=== PATIENT | male | born 1995 | race Caucasian/White ===

== ENCOUNTER 2024-08-27 22:29 | Inpatient (IN) ==
--- NOTE | 2024-08-27 23:36 | Emergency Department Note ---
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 Blood work was obtained. Patient had nausea and vomiting. He was given Zofran. A banana bag was ordered and administered after discussion with pharmacist. Patient has not been eating well and has had significant alcohol intake. Patient was also given IV Ativan. On reassessment he was doing much better. CBC and chemistry panel are unremarkable. Patient had a marked elevation of his blood alcohol level. He is at high risk for serious withdrawal and delirium tremens. Patient and I discussed hospital admission. Patient is agreeable and wants help with his alcohol problem.Consultation was made with Dr. Dominik Rider of the [facility] service. Patient was evaluated in the ER for further management. Care/management discussed with: none Level of care consideration(s): After review of the information above and other included data, I feel the patient requires escalation of care to admission Triage Nursing notes: reviewed and agree them. Vital Signs: reviewed and remarkable for tachycardia Additional History obtained from: none Chronic Medical/Social Conditions affecting care: Alcohol abuse Prior/ Outside/ External records reviewed: none Differential Diagnosis: Alcohol intoxication, toxicologic, infection, hypoglycemia, electrolyte abnormalities, cardiac sources, intracerebral event, neurologic, trauma, as well as other pathologies. Diagnostics, independently interpreted by me: ECG: Twelve-lead ECG reveals a normal sinus rhythm at [address] elevation or depression. No PACs or PVCs. Cardiac Monitoring: Cardiac monitoring ordered by me: The patient was placed on continuous cardiac monitoring and observed. It revealed a sinus tachycardia at 116 beats per minute without ectopy or evidence of dysrhythmia. Medical decision rules: none Imaging studies: Deferred HPI: 28 year old Male arrives for evaluation of intoxication. Patient states that he consumes alcohol heavily. He has been drinking like this for over a month. He was feeling somewhat down about the of his mother as her birthday was just a few days ago. Patient states he has had some vomiting. He feels very shaky. He drank about 5 cocktails today. Patient does have a history of withdrawal and heavy alcohol use. He does note a history of withdrawal seizures as well. He is seeking care due to the concerns for severe withdrawal. Patient also notes a history of hallucinations. Denies any current hallucinations. Notes he feels somewhat depressed but denies any suicidal or homicidal ideation. Pt denies LOC, headache, fevers, chills, diaphoresis, visual changes, neck pain, chest pain, breathing difficulties, trauma, abdominal pain, back pain, melena, hematochezia, urinary symptoms, numbness, weakness, lymphadenopathy, rash, or other complaints. PAST MEDICAL HISTORY: See Below, alcohol abuse, delirium tremens PAST SURGICAL HISTORY: See Below, SOCIAL HISTORY: See Below, drinks daily HOME MEDICATIONS: See Below ALLERGIES: See Below VITALS: See Below PHYSICAL EXAMINATION: GENERAL: Awake, alert, intoxicated-appearing, in no distress HENT: Normocephalic, atraumatic. Oropharynx unremarkable. EYES: Normal conjunctiva. Sclera non-icteric. NECK: Inspection normal. Non-tender. Supple. No nuchal rigidity. FROM. No masses. RESPIRATORY: Clear to auscultation. No wheezes. No rales. Normal respiratory effort. CARDIAC: Tachycardic rate. Normal rhythm. No murmurs. No rubs. Extremities warm and well perfused. Pulses equal. No JVD. GI: Soft, non-distended. No tenderness to palpation. No rebound or guarding. No masses. RECTAL: Deferred. MUSCULOSKELETAL: Atraumatic. Chest examination reveals no tenderness. The back is symmetrical on inspection without obvious abnormality. There is no CVA tenderness to palpation. No joint edema. LOWER EXTREMITIES: Calves are equal size bilaterally and non-tender. No edema. No discoloration. NEURO: Normal sensorium. No sensory or motor deficits noted. SKIN: No rash or jaundice noted. 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 and No Current Living Situation: Alone Feels Safe at Home: Yes Allergies Allergies Allergy/AdvReac Type Severity Reaction Status Date / Time No Known Allergies Allergy Verified 08/27/24 23:33 Results & Data (ED) Vital Signs Vital Signs - 24 hr 08/27/24 22:49 08/27/24 22:49 08/27/24 22:49 Temperature 36.6 C Temperature Source Oral Pulse Rate 101 H Pulse Rate [Apical] 101 H Pulse Rate from SpO2 Sensor Respiratory Rate 18 18 Respiratory Effort / Characteristics Non-Labored Spontaneous Non-Labored Spontaneous Respiratory Depth Normal Normal Blood Pressure 122/83 Blood Pressure [Right Arm] 122/83 Blood Pressure Mean 96 Blood Pressure Mean [Right Arm] 96 Pulse Oximetry 96 96 Oxygen Delivery Method Room Air Room Air Room Air Sepsis Recent Fever Within 48 Hours No Sepsis New/Unexplained Change in Mental Status No Sepsis Action Taken by Nursing No Action Required 08/27/24 23:00 08/28/24 00:21 08/28/24 00:39 Temperature Temperature Source Pulse Rate 95 H 88 82 Pulse Rate [Apical] Pulse Rate from SpO2 Sensor 92 H 81 Respiratory Rate 15 17 Respiratory Effort / Characteristics Respiratory Depth Blood Pressure 108/73 109/77 Blood Pressure [Right Arm] Blood Pressure Mean 84 87 Blood Pressure Mean [Right Arm] Pulse Oximetry 96 96 Oxygen Delivery Method Room Air Room Air Sepsis Recent Fever Within 48 Hours Sepsis New/Unexplained Change in Mental Status Sepsis Action Taken by Nursing Laboratory Data 08/27/24 22:45 08/27/24 22:45 Lab Results 08/27/24 Range/Units 22:45 WBC 8.39 (4.8-10.8) K/ul RBC 5.70 (4.70-6.10) M/uL Hgb 17.8 (14.0-18.0) g/dl Hct 50.1 (42.0-52.0) % MCV 87.9 (80.0-100.0) fL MCH 31.2 (25.0-34.0) pg MCHC 35.5 (32.0-36.0) g/dL RDW Std Deviation 39.1 (36.4-46.3) fL RDW Coeff of Chuck 12.3 (11.5-14.5) % Plt Count 141 (130-400) K/uL MPV 8.5 L (9.4-12.4) fL Immature Gran % (Auto) 0.4 % Neut % (Auto) 51.6 % Lymph % (Auto) 38.4 % [place] % (Auto) 7.5 % Eos % (Auto) 1.1 % Baso % (Auto) 1.0 % Neut # (Auto) 4.34 (1.40-6.50) K/uL Lymph # (Auto) 3.22 (1.20-3.40) K/uL [place] # (Auto) 0.63 H (0.11-0.59) K/uL Eos # (Auto) 0.09 (0.00-0.50) K/uL Baso # (Auto) 0.08 (0.00-0.20) K/uL Immature Gran # (Auto) 0.03 (0.01-0.20) K/uL Sodium 141 (136-145) mmol/L Potassium 3.5 (3.5-5.1) mmol/L Chloride 104 (98-107) mmol/L Carbon Dioxide 27 (21-32) mmol/L Anion Gap 10 (3-11) BUN 7 (6-23) mg/dl Creatinine 0.73 (0.6-1.4) mg/dl Est Cr Clr Drug Dosing 157.6 ml/min eGFR 125.52 BUN/Creatinine Ratio 9.6 L (10-20) Glucose 129 H (70-99(Fasting)) mg/dl Calcium 8.7 (8.6-10.3) mg/dl Magnesium 2.1 (1.7-2.4) mg/dl Total Bilirubin 0.9 (0.2-1.0) mg/dl Direct Bilirubin 0.2 (0-0.2) mg/dl AST 56 H (13-39) U/L ALT 43 (7-52) U/L Alkaline Phosphatase 94 (34-104) U/L Total Protein 7.8 (6.0-8.3) gm/dl Albumin 4.4 (3.4-5.0) gm/dl Salicylates < 3.0 L (3.0-30) mg/dl Acetaminophen < 3 L (10-30) ug/ml Ethyl Alcohol mg/dL 354.2 H (<10.0) mg/dl Administered Medications Discontinued Medications Gabapentin (Gabapentin 600 Mg Tab) 1,200 mg PO NOW ONE Stop: 08/28/24 01:43 Last Admin: 08/28/24 01:56 Dose: 1,200 mg Documented By: LUIS ANGEL Multivitamins 10 ml/ Thiamine HCl 100 mg/ Folic Acid 1 mg/Sodium Chloride 1,011.2 mls @ 999 mls/hr IV .Q1H1M ONE Stop: 08/28/24 00:45 Last Infusion: 08/28/24 01:17 Dose: Infused Documented By: LUIS ANGEL Admin: 08/28/24 00:16 Dose: 999 mls/hr Documented By: LUIS ANGEL Lorazepam (Lorazepam 2 Mg/1 Ml Vial) 1 mg IV NOW STA Stop: 08/27/24 23:33 Last Admin: 08/27/24 23:49 Dose: 1 mg Documented By: LUIS ANGEL Ondansetron HCl (Ondansetron Inj 2 Mg/Ml 2 Ml Vial) 4 mg IV NOW STA Stop: 08/27/24 23:31 Last Admin: 08/27/24 23:49 Dose: 4 mg Documented By: LUIS ANGEL Discharge Plan Visit Data Chief Complaint: Alcohol Intoxication Stated Complaint: ALCOHOL INTOX/ SI ED Provider: Tadeo Garcia Discharge Problem: Alcoholic intoxication, Alcohol withdrawal syndrome, Vomiting Patient Disposition: Admitted As Inpatient Discharge Instructions Interventions: ED Discharge Assessment Last Done: 08/28/24 01:42
[2024-08-27 23:37] LABS: Basophils # (auto) 0.08 K/uL (0.00-0.20); Eosinophils # (auto) 0.09 K/uL (0.00-0.50); Eosinophils % (auto) 1.1 %; Hematocrit (blood only) 50.1 % (42.0-52.0); Hemoglobin 17.8 g/dl (14.0-18.0); Immature Granulocytes # (auto) 0.03 K/uL (0.01-0.20); Immature Granulocytes % (auto) 0.4 %; Lymphocytes # (auto) 3.22 K/uL (1.20-3.40); Lymphocytes % (auto) 38.4 %; Mean Corpuscular Hemoglobin 31.2 pg (25.0-34.0); Mean Corpuscular Hgb Conc 35.5 g/dL (32.0-36.0); Mean Corpuscular Volume 87.9 fL (80.0-100.0); Mean Platelet Volume 8.5 fL (9.4-12.4); Monocytes # (auto) 0.63 K/uL (0.11-0.59); Monocytes % (auto) 7.5 %; Neutrophils # (auto) 4.34 K/uL (1.40-6.50); Neutrophils % (auto) 51.6 %; Platelet Count 141 K/uL (130-400); RDW Coefficient of Variation 12.3 % (11.5-14.5); RDW Standard Deviation 39.1 fL (36.4-46.3); White Blood Count 8.39 K/ul (4.8-10.8)
[2024-08-27 23:38] LABS: BUN Creatinine Ratio 9.6 (10-20); Calcium 8.7 mg/dl (8.6-10.3); Creatinine Clr Calc Pharmacy 157.6 ml/min; Potassium 3.5 mmol/L (3.5-5.1)
[2024-08-27] MEDS: LORazepam 2 MG/1 ML VIAL IV STA (23:49)
[2024-08-27] MEDS: ONDANSETRON INJ 2 MG/ML 2 ML VIAL IV STA (23:49)
[2024-08-27 23:51] LABS: Albumin Level 4.4 gm/dl (3.4-5.0); Bilirubin Direct 0.2 mg/dl (0-0.2); Bilirubin,Total 0.9 mg/dl (0.2-1.0); Magnesium 2.1 mg/dl (1.7-2.4); Total Protein 7.8 gm/dl (6.0-8.3)
[2024-08-28 00:12] LABS: Acetaminophen < 3 ug/ml (10-30); Salicylate < 3.0 mg/dl (3.0-30)
[2024-08-28] MEDS: MULTI-VITAMIN INFUSION 10 ML, THIAMINE HCL 100 MG, FOLIC ACID 1 MG in SODIUM CHLORIDE 0... IV ONE (00:16)
[2024-08-28] MEDS ORDERED: GABAPENTIN 1200MG ALCOHOL WITHDRAWAL LOAD PO STA (01:42)
[2024-08-28] MEDS ORDERED: Ativan IV Alcohol Withdrawal--Active Protocol IV PRN (01:42)
[2024-08-28] MEDS ORDERED: ONDANSETRON INJ 2 MG/ML 2 ML VIAL IV PRN (01:42)
[2024-08-28] MEDS ORDERED: LORazepam 2 MG/1 ML VIAL IV PRN (01:42)
[2024-08-28] MEDS: GABAPENTIN 600 MG TAB PO ONE (01:56)
[2024-08-28 02:30] LABS: Appearance Urine Cloudy (Clear); Bacteria Urine Automated None Seen (None Seen); Bilirubin Urine 1+ (Negative); Blood Urine Negative (Negative); Cast Urine Automated 0-2 /lpf (0-2); Color Urine Dark Yellow; Epithelial Cell Urine Auto 0-2 /hpf (0-2); Glucose Urine UA Negative (Negative); Ketones Urine Trace (Negative); Leukocyte Esterase Urine 2+ (Negative); Mucus Urine Present (None Prsent); Nitrite Urine Negative (Negative); Protein Urine 1+ (Negative); RBC Urine Automated 0-2 /hpf (0-2); Specific Gravity Urine 1.032 (1.000-1.030); Urobilinogen Urine Negative (Negative)
[2024-08-28 02:54] LABS: Amphetamines+Metham, Urine Neg (Neg); Barbiturates, Urine Neg (Neg); Benzodiazepine, Urine Neg (Neg); Cocaine, Urine Neg (Neg); Fentanyl, Urine Neg (Neg); MDMA (Ecstacy), Urine Neg (Neg); Marijuana, Urine Neg (Neg); Methadone, Urine Neg (Neg); Opiate, Urine Neg (Neg); Phencyclidine, Urine Neg (Neg)
--- NOTE | 2024-08-28 05:40 | History & Physical Report ---
Date of Service August 28, 2024 Assessment & Plan (1) History of seizure due to alcohol withdrawal: (2) Vomiting: (3) Alcohol withdrawal syndrome: (4) Alcoholic intoxication: (5) Tobacco abuse: Plan Alcohol intoxication/alcohol withdrawal symptoms/history of seizure due to alcohol withdrawal- Admit to monitored bed Status post banana bag, lorazepam 1 mg IV and Zofran 4 mg IV from the ED Alcohol level 354.2 on admission Start gabapentin protocol due to seizure withdrawal history AWSS protocol with IV Ativan Thiamine 100 mg p.o. every morning Folic acid 1 mg p.o. every morning Tobacco use disorder- Daily tobacco use Cessation counseling NicoDerm patch if desires Admission and Anticipated Discharge Date Admission Date: August 28, 2024 History of Present Illness Chief Complaint: The patient presents to the emergency department due to concerns regarding shaking and tremors when he tries to decrease his alcohol intake, which he has begun more significantly again over the past month. Primary Care Provider: NO PCP The patient is a 28-year-old male with a past medical history including tobacco abuse, and alcohol dependency, with multiple admissions for seizures associated with alcohol withdrawal. He presents to the emergency department with his most recent intake over the past month, and concerns regarding shakes and tremors as he tries to cut back. He also reports multiple episodes of nausea and vomiting. He reports upon questioning, that he would be interested in consideration for inpatient rehab once he goes through this inpatient episode Allergies Allergy/AdvReac Type Severity Reaction Status Date / Time No Known Allergies Allergy Verified 08/27/24 23:33 Home Medications Medication Instructions Recorded Confirmed Type No Known Home Medications 08/28/24 08/28/24 History Past Med/Surg History Problem List (Updated 08/28/24 @ 05:38 by Dominik Rider MD) Tobacco abuse History of seizure due to alcohol withdrawal Vomiting (Acute) Alcohol withdrawal syndrome (Acute) Alcoholic intoxication (Acute) Social History Smoking Status: Current every day smoker Tobacco Type: Cigarettes Hx Alcohol Use: Yes Alcohol type: hard liquor Hx Substance Use: Yes Preferred Language: Sami 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 Current Living Situation: Alone Feels Safe at Home: Yes Review of Systems Review of Systems: The patient denies chest pain, palpitations, shortness of breath, dyspnea on exertion, cough, lower extremity swelling, sore throat, fevers, chills, sweats, weight change, fatigue, diarrhea , constipation, abdominal pain, pelvic pain, blood in urine or stool, dysuria, urinary frequency or urgency, memory loss, loss of consciousness, rash, abnormal bruising or bleeding, imbalance, focal or generalized weakness, numbness or tingling in arms or legs, generalized arthralgias or myalgias, back or neck pain, or night sweats. The review of systems is otherwise negative other than for that already noted above, and at least 10 systems have been reviewed. Physical Exam Physical Exam: The patient is awake, alert and oriented 3, well developed and well nourished, normocephalic and atraumatic, lying in bed and in no acute distress. HEENT--PERRL, EOMI, mucous membranes and oropharynx mildly dry. Neck--supple. No JVD. No bruits. Thyroid normal, trachea midline, no adenopathy. Heart--normal S1 and S2. No murmurs, rubs or gallops. Lungs--clear bilaterally, no respiratory distress, no accessory muscle use. Abdomen--normal bowel sounds and soft. Nontender. Nondistended, no hernias or masses, no organomegaly. Extremities--no cyanosis or clubbing. No edema. There are good distal pulses b/l. Dermatologic--normal skin turgor, normal color, no abnormal lymph nodes, no rash. Neurologic--cranial nerves II through XII grossly intact. Rheumatologic--normal range of motion. Psychiatric--normal affect. Results & Data Results & Data Vital Signs (Past 12 Hours) Vital Signs Temp Pulse Pulse Resp BP BP Pulse Ox 08/28/24 03:33 08/28/24 03:19 36.6 C 94 H 18 100/74 97 08/28/24 02:09 83 17 125/67 92 08/28/24 00:39 82 17 109/77 96 08/28/24 00:21 88 15 108/73 96 08/27/24 23:00 95 H 08/27/24 22:49 101 H 18 122/83 96 08/27/24 22:49 08/27/24 22:49 36.6 C 101 H 18 122/83 96 Pulse Ox O2 Del Method O2 Del Method 08/28/24 03:33 97 Room Air 08/28/24 03:19 Room Air 08/28/24 02:09 Room Air 08/28/24 00:39 Room Air 08/28/24 00:21 Room Air 08/27/24 23:00 08/27/24 22:49 Room Air 08/27/24 22:49 Room Air 08/27/24 22:49 Room Air Laboratory Results Laboratory Results WBC 8.39 K/ul (4.8-10.8) 08/27/24 22:45 RBC 5.70 M/uL (4.70-6.10) 08/27/24 22:45 Hgb 17.8 g/dl (14.0-18.0) 08/27/24 22:45 Hct 50.1 % (42.0-52.0) 08/27/24 22:45 MCV 87.9 fL (80.0-100.0) 08/27/24 22:45 MCH 31.2 pg (25.0-34.0) 08/27/24 22:45 MCHC 35.5 g/dL (32.0-36.0) 08/27/24 22:45 RDW Std Deviation 39.1 fL (36.4-46.3) 08/27/24 22:45 RDW Coeff of Chuck 12.3 % (11.5-14.5) 08/27/24 22:45 Plt Count 141 K/uL (130-400) 08/27/24 22:45 MPV 8.5 fL (9.4-12.4) L 08/27/24 22:45 Immature Gran % (Auto) 0.4 % 08/27/24 22:45 Neut % (Auto) 51.6 % 08/27/24 22:45 Lymph % (Auto) 38.4 % 08/27/24 22:45 [place] % (Auto) 7.5 % 08/27/24 22:45 Eos % (Auto) 1.1 % 08/27/24 22:45 Baso % (Auto) 1.0 % 08/27/24 22:45 Neut # (Auto) 4.34 K/uL (1.40-6.50) 08/27/24 22:45 Lymph # (Auto) 3.22 K/uL (1.20-3.40) 08/27/24 22:45 [place] # (Auto) 0.63 K/uL (0.11-0.59) H 08/27/24 22:45 Eos # (Auto) 0.09 K/uL (0.00-0.50) 08/27/24 22:45 Baso # (Auto) 0.08 K/uL (0.00-0.20) 08/27/24 22:45 Immature Gran # (Auto) 0.03 K/uL (0.01-0.20) 08/27/24 22:45 Sodium 141 mmol/L (136-145) 08/27/24 22:45 Potassium 3.5 mmol/L (3.5-5.1) 08/27/24 22:45 Chloride 104 mmol/L (98-107) 08/27/24 22:45 Carbon Dioxide 27 mmol/L (21-32) 08/27/24 22:45 Anion Gap 10 (3-11) 08/27/24 22:45 BUN 7 mg/dl (6-23) 08/27/24 22:45 Creatinine 0.73 mg/dl (0.6-1.4) 08/27/24 22:45 Est Cr Clr Drug Dosing 157.6 ml/min 08/27/24 22:45 eGFR 125.52 08/27/24 22:45 BUN/Creatinine Ratio 9.6 (10-20) L 08/27/24 22:45 Glucose 129 mg/dl (70-99(Fasting)) H 08/27/24 22:45 Calcium 8.7 mg/dl (8.6-10.3) 08/27/24 22:45 Magnesium 2.1 mg/dl (1.7-2.4) 08/27/24 22:45 Total Bilirubin 0.9 mg/dl (0.2-1.0) 08/27/24 22:45 Direct Bilirubin 0.2 mg/dl (0-0.2) 08/27/24 22:45 AST 56 U/L (13-39) H 08/27/24 22:45 ALT 43 U/L (7-52) 08/27/24 22:45 Alkaline Phosphatase 94 U/L (34-104) 08/27/24 22:45 Total Protein 7.8 gm/dl (6.0-8.3) 08/27/24 22:45 Albumin 4.4 gm/dl (3.4-5.0) 08/27/24 22:45 Urine Color Dark Yellow 08/28/24 02:00 Urine Appearance Cloudy (Clear) A 08/28/24 02:00 Urine pH 8.0 (4.5-7.5) H 08/28/24 02:00 Ur Specific [place] 1.032 (1.000-1.030) H 08/28/24 02:00 Urine Protein 1+ (Negative) H 08/28/24 02:00 Urine Glucose (UA) Negative (Negative) 08/28/24 02:00 Urine Ketones Trace (Negative) H 08/28/24 02:00 Urine Blood Negative (Negative) 08/28/24 02:00 Urine Nitrite Negative (Negative) 08/28/24 02:00 Urine Bilirubin 1+ (Negative) H 08/28/24 02:00 Urine Urobilinogen Negative (Negative) 08/28/24 02:00 Ur Leukocyte Esterase 2+ (Negative) H 08/28/24 02:00 Urine WBC (Auto) 6-10 /hpf (0-5) H 08/28/24 02:00 Urine RBC (Auto) 0-2 /hpf (0-2) 08/28/24 02:00 U Hyaline Cast (Auto) 0-2 /lpf (0-2) 08/28/24 02:00 U Epithel Cells (Auto) 0-2 /hpf (0-2) 08/28/24 02:00 Urine Bacteria (Auto) None Seen (None Seen) 08/28/24 02:00 Urine Mucus Present (None Prsent) A 08/28/24 02:00 Salicylates < 3.0 mg/dl (3.0-30) L 08/27/24 22:45 Urine Opiates Screen Neg (Neg) 08/28/24 02:00 Ur Methadone, Qual Neg (Neg) 08/28/24 02:00 Urine Fentanyl Screen Neg (Neg) 08/28/24 02:00 Acetaminophen < 3 ug/ml (10-30) L 08/27/24 22:45 Urine Barbiturates Neg (Neg) 08/28/24 02:00 Ur Phencyclidine (PCP) Neg (Neg) 08/28/24 02:00 U Amphetamin/Meth Scrn Neg (Neg) 08/28/24 02:00 MDMA (Ecstasy) Screen Neg (Neg) 08/28/24 02:00 U Benzodiazepines Scrn Neg (Neg) 08/28/24 02:00 Ur Cocaine Metabolite Neg (Neg) 08/28/24 02:00 U Marijuana (THC) Screen Neg (Neg) 08/28/24 02:00 Ethyl Alcohol mg/dL 354.2 mg/dl (<10.0) H 08/27/24 22:45 Code Status & VTE Plan Code Status Full code VTE Prophylaxis Plan VTE Prophylaxis will be ordered: Yes PG Care Time/CCT Total # of Minutes Spent Total Time Spent with Patient: Total time spent is greater than 50% in coordination of care (as documented) at patient's floor/unit and/or counseling patient: Coding Level of Care Code 52560 INT INP/OBS CARE 3/75MIN Diagnoses History of seizure due to alcohol withdrawal Z87.898; Z86.59 Vomiting R11.10 Alcohol withdrawal syndrome F10.939 Alcoholic intoxication F10.929 Tobacco abuse Z72.0
--- NOTE | 2024-08-28 07:51 | Hospitalist Progress Note ---
Date of Service August 28, 2024 Assessment & Plan (1) History of seizure due to alcohol withdrawal: (2) Vomiting: (3) Alcohol withdrawal syndrome: (4) Alcoholic intoxication: (5) Tobacco abuse: Plan Alcohol intoxication/alcohol withdrawal symptoms/history of seizure due to alcohol withdrawall- Alcohol level 354.2 on admission. He was given IV lorazepam 1 mg and IV Zofran 4mg and IVF. Pt was started on gabapentin protocol due to hx of seizures with detox. AWSS protocol with IV Ativan started. During day, pt's AWSS scores were 0-1, approx 1430, pt began having more symptoms with anxiety, tremors, hallucinations and sweating and scored a 9. He was given a 2 mg dose of Ativan. - Continue Thiamine 100 mg p.o. every morning - Continue Folic acid 1 mg p.o. every morning - Gabapentin discontinued - Consider schedule Valium 10 mg if AWSS score remain high and he is receiving frequent doses of Ativan Tobacco use disorder- Daily tobacco use at 1 pack/day -Cessation counseling - NicoDerm patch 21mg Dispo: med tele Diet: regular VTE prophylaxis: SCDs Code: full Admission and Anticipated Discharge Date Admission Date: August 28, 2024 Supervising Physician Co-Signing Physician Notes I personally examined the patient and verified all mora points of history and exam, discussed case, and agree with decision making with Dr Salcedo needed a dose of ativan earlier, feeling much better since discussed EtOH - appears to drink due to depression and possibly PTSD vitals noted nad heent nc at mmm breathign unlabored no accessory muscles EtOH abuse/withdrawal - currently doing well on symptom triggered benzos - continue as such for now, low threshold to front load valium and/or schedule valium if worsens but appearing fairly mild at this time depression/possible PTSD - outpt care/resources/f/u Subjective Pt is a 28 yo male who presented to ED with tremors and nausea with attempts to reduce alcohol use at home. Pt admitted for alcohol detox. Last drink was 08/27, ETOH was 354.2 at admission. Pt reports no severe tremor, hallucinations, fever, chills, or palpitations this morning. He has some mild anxiety. He reports history of hallucinations and seizures with past attempts at detox. Pt denies nausea, abdominal pain or diarrhea. Pt eating his breakfast during interview. Review of Systems Review of Systems: As per HPI Physical Exam Physical Exam: The patient is awake, alert and oriented 3, well developed and well nourished, normocephalic and atraumatic, and in no acute distress. HEENT--PERRL, EOMI, mucous membranes moist. Neck--supple. No JVD. no adenopathy. Heart--normal S1 and S2. No murmurs, rubs or gallops. Lungs--clear bilaterally, no respiratory distress, no accessory muscle use. Abdomen--normal bowel sounds and soft. Nontender. Nondistended, no hernias or masses, no organomegaly. Extremities--no cyanosis or clubbing. No edema. There are good distal pulses b/l. Dermatologic-- normal color, no abnormal lymph nodes, no rash. Neurologic--cranial nerves II through XII grossly intact. Psychiatric--normal affect, mood congruent. Results & Data Results & Data Vital Signs (Past 12 Hours) Vital Signs Temp Pulse Pulse Resp BP BP Pulse Ox 08/28/24 07:04 96 H 08/28/24 03:33 08/28/24 03:19 36.6 C 94 H 18 100/74 97 08/28/24 02:09 83 17 125/67 92 08/28/24 00:39 82 17 109/77 96 08/28/24 00:21 88 15 108/73 96 08/27/24 23:00 95 H 08/27/24 22:49 101 H 18 122/83 96 08/27/24 22:49 08/27/24 22:49 36.6 C 101 H 18 122/83 96 Pulse Ox O2 Del Method O2 Del Method 08/28/24 07:04 08/28/24 03:33 97 Room Air 08/28/24 03:19 Room Air 08/28/24 02:09 Room Air 08/28/24 00:39 Room Air 08/28/24 00:21 Room Air 08/27/24 23:00 08/27/24 22:49 Room Air 08/27/24 22:49 Room Air 08/27/24 22:49 Room Air Resident Activity Tracking Resident Involvement: Resident Care Provided Care Provided: Adult Hospital Medicine
[2024-08-28] MEDS: GABAPENTIN 600 MG TAB PO SCH (09:12)
[2024-08-28] MEDS: THIAMINE HCL 100 MG TAB PO SCH (09:12)
[2024-08-28] MEDS: FOLIC ACID 1 MG TAB PO SCH (09:12)
[2024-08-28] MEDS: LORazepam 2 MG/1 ML VIAL IV PRN ×2 (14:20→20:57)
--- NOTE | 2024-08-28 14:57 | Electrocardiogram Report ---
Test Reason : Blood Pressure : */* mmHG Vent. Rate : 83 BPM Atrial Rate : 83 BPM P-R Int : 154 ms QRS Dur : 78 ms QT Int : 370 ms P-R-T Axes : 30 53 56 degrees QTcB Int : 434 ms Normal sinus rhythm Normal ECG No previous ECGs available Confirmed by Ang Banks ([id number]) on 08/28/2024 2:57:10 PM Referred By: REFERRED SELF Confirmed By: Ang Banks
[2024-08-28] MEDS: NICOTINE 21 MG/24 HR TDSY TD SCH (19:34)
[2024-08-28] MEDS ORDERED: GABAPENTIN 600 MG TAB PO SCH (22:00)
[2024-08-29 03:00] VITALS: RESP 18
--- NOTE | 2024-08-29 07:20 | Hospitalist Progress Note ---
Date of Service August 29, 2024 Assessment & Plan (1) History of seizure due to alcohol withdrawal: (2) Vomiting: (3) Alcohol withdrawal syndrome: (4) Alcoholic intoxication: (5) Tobacco abuse: Plan Alcohol intoxication/alcohol withdrawal symptoms/history of seizure due to alcohol withdrawall- Alcohol level 354.2 on admission. During day, pt's AWSS scores were 0-1, approx 1430, pt began having more symptoms with anxiety, tremors, hallucinations and sweating and scored a 9. He was given a 2 mg dose of Ativan. AWSS over night ranged from 2-6, he received a 1mg of Ativan prior to going to bed for the night. - Continue AWSS protocol - Continue seizure precautions - Continue Thiamine 100 mg p.o. every morning - Continue Folic acid 1 mg p.o. every morning - Reach out to case manage to request resources for patient to set up outpatient alcohol rehab Tobacco use disorder- Daily tobacco use at 1 pack/day - Continue NicoDerm patch 21mg Dispo: med tele Diet: regular VTE prophylaxis: SCDs Code: full Admission and Anticipated Discharge Date Admission Date: August 28, 2024 Subjective Pt is a 28 yo male who was admitted for alcohol detox. Last drink was 08/27, ETOH was 354.2 at admission.Pt reports hx of hallucinations and seizures with detox in the past. This morning, pt reports he had a fairly good night. Awoke a couple time in cold sweat and noting continued anxiety, but was able to sleep last night without requiring increased dose of Ativan. Pt states he is interested in getting more information about outpatient alcohol rehab. Pt denies CP, SOB, nausea, abdominal pain or diarrhea. Review of Systems Review of Systems: As per HPI Physical Exam Physical Exam: The patient is awake, alert and oriented 3, well developed and well nourished, normocephalic and atraumatic, and in no acute distress. HEENT--PERRL, EOMI, mucous membranes moist. Neck--supple. No JVD. no adenopathy. Heart--normal S1 and S2. No murmurs, rubs or gallops. Lungs--clear bilaterally, no respiratory distress, no accessory muscle use. Abdomen--normal bowel sounds and soft. Nontender. Nondistended, no hernias or masses, no organomegaly. Extremities--no cyanosis or clubbing. No edema. There are good distal pulses b/l. Mild tremors noted at bilateral hands when outstretched Dermatologic-- normal color, no abnormal lymph nodes, no rash. Neurologic--cranial nerves II through XII grossly intact. Psychiatric--normal affect, mood congruent. Results & Data Results & Data Vital Signs (Past 12 Hours) Vital Signs Temp Pulse Pulse Resp BP Pulse Ox O2 Del Method 08/29/24 02:43 36.4 C L 75 18 113/67 95 Room Air 08/28/24 23:38 36.4 C L 77 20 145/79 H 95 Room Air 08/28/24 21:50 91 H 08/28/24 19:41 36.7 C 90 16 120/76 97 Room Air Resident Activity Tracking Resident Involvement: Resident Care Provided Care Provided: Adult Hospital Medicine
[2024-08-29 07:54] LABS: Hematocrit (blood only) 44.7 % (42.0-52.0); Hemoglobin 15.6 g/dl (14.0-18.0); Mean Corpuscular Hemoglobin 31.1 pg (25.0-34.0); Mean Corpuscular Hgb Conc 34.9 g/dL (32.0-36.0); RDW Standard Deviation 39.3 fL (36.4-46.3); Red Blood Count 5.02 M/uL (4.70-6.10); White Blood Count 4.91 K/ul (4.8-10.8)
[2024-08-29 08:03] LABS: Albumin Globulin Ratio 1.4 (0.9-2); BUN Creatinine Ratio 11.9 (10-20); Bilirubin,Total 2.1 mg/dl (0.2-1.0); Calcium 8.9 mg/dl (8.6-10.3); Globulin 2.8 gm/dl (2.5-4.0); Magnesium 1.8 mg/dl (1.7-2.4); Potassium 3.8 mmol/L (3.5-5.1); Total Protein 6.8 gm/dl (6.0-8.3)
[2024-08-29 08:34] LABS: Basophils # (auto) 0.03 K/uL (0.00-0.20); Basophils % (auto) 0.6 %; Eosinophils # (auto) 0.15 K/uL (0.00-0.50); Eosinophils % (auto) 3.1 %; Immature Granulocytes # (auto) 0.02 K/uL (0.01-0.20); Immature Granulocytes % (auto) 0.4 %; Lymphocytes # (auto) 1.52 K/uL (1.20-3.40); Mean Platelet Volume 8.8 fL (9.4-12.4); Monocytes # (auto) 0.53 K/uL (0.11-0.59); Monocytes % (auto) 10.8 %; Neutrophils # (auto) 2.66 K/uL (1.40-6.50); Neutrophils % (auto) 54.1 %; Platelet Count 80 K/uL (130-400); Platelet Estimate Decreased (Normal)
[2024-08-29 11:44] VITALS: TEMP 98.6; O2SAT 96
--- NOTE | 2024-08-29 13:05 | Discharge Summary ---
Date of Service August 29, 2024 Admission HPI Per Admitting Provider The patient is a 28-year-old male with a past medical history including tobacco abuse, and alcohol dependency, with multiple admissions for seizures associated with alcohol withdrawal. He presents to the emergency department with his most recent intake over the past month, and concerns regarding shakes and tremors as he tries to cut back. He also reports multiple episodes of nausea and vomiting. He reports upon questioning, that he would be interested in consideration for inpatient rehab once he goes through this inpatient episode Principal Diagnosis Alcohol withdrawl Discharge Exam The patient is awake, alert and oriented 3, well developed and well nourished, normocephalic and atraumatic, and in no acute distress. HEENT--PERRL, EOMI, mucous membranes moist. Neck--supple. No JVD. no adenopathy. Heart--normal S1 and S2. No murmurs, rubs or gallops. Lungs--clear bilaterally, no respiratory distress, no accessory muscle use. Abdomen--normal bowel sounds and soft. Nontender. Nondistended, no hernias or masses, no organomegaly. Extremities--no cyanosis or clubbing. No edema. There are good distal pulses b/l. Mild tremors noted at bilateral hands when outstretched Dermatologic-- normal color, no abnormal lymph nodes, no rash. Neurologic--cranial nerves II through XII grossly intact. Psychiatric--normal affect, mood congruent. Discharge Data Allergies Allergy/AdvReac Type Severity Reaction Status Date / Time No Known Allergies Allergy Verified 08/27/24 23:33 Consultations 08/28/24 00:44 ED Decision to Admit Stat Hospital Course (1) History of seizure due to alcohol withdrawal: (2) Vomiting: (3) Alcohol withdrawal syndrome: (4) Alcoholic intoxication: (5) Tobacco abuse: Plan Alcohol intoxication/alcohol withdrawal symptoms/history of seizure due to alcohol withdrawall- Alcohol level 354.2 on admission. During day, pt's AWSS scores were 0-1, approx 1430, pt began having more symptoms with anxiety, tremors, hallucinations and sweating and scored a 9. He was given a 2 mg dose of Ativan. AWSS over night ranged from 2-6, he received a 1mg of Ativan prior to going to bed for the night. - Given 5mg Ativan PO for PRN use for withdrawal symptoms at discharge - Continue Thiamine 100 mg p.o. every morning - Continue Folic acid 1 mg p.o. every morning - Given resources for outpatient alcohol rehab Tobacco use disorder- Daily tobacco use at 1 pack/day - Continue NicoDerm patch 21mg Total Time Total Time Spent Total Time Spent (In Minutes): <30 Discharge Plan Discharge Items Patient Disposition: Home - Self-Care Reason For Visit: alcohol intoxication, alcohol withdrawal Discharge Diagnosis: Alcohol withdrawal Activity: Resume your previous activity Non-emergency contact: Primary Care Provider Call non-emergency contact if: your symptoms worsen Follow-up/Referrals: PCP,NO [Primary Care Provider] - Diet: Regular Addtl Attending Provider Instructions: You were admitted and treated for alcohol withdrawal. You received as needed dose of Ativan to reduce your symptoms while abstaining from alcohol. You are strongly encourage to enroll in an outpatient alcohol rehabilitation program to continue your journey. We have prescribed Ativan 5mg which has been called in to your pharmacy to be taken as needed to assist with mild withdrawal symptoms you have after discharge. We have also prescribed Thiamine and Folic acid for you to continue at home. These vitamins can become very depleted during alcohol use, therefore supplementation following detox improves your overall health. Please establish care with Dr. Jenni Salcedo, vice president research at [facility] within one week to follow up on medications. You can call to schedule at . Pending Studies at Discharge: No Stand-Alone Forms: My [facility], Work/School Release, Smoking Cessation Medications and DC Order Prescriptions: New thiamine HCl (vitamin B1) 100 mg Tablet 100 mg PO QAM Qty: 30 1RF folic acid 1 mg Tablet 1 mg PO QAM Qty: 30 1RF diazepam 5 mg tablet 5 mg PO DAILY Qty: 3 0RF Discharge Orders: Discharge Order (Routine); Ordered 08/29/24 Ordered By: Jenni Kingston/Other Patient Handouts: Alcoholism and Family History, Substance Abuse Rehab Program, Social Drinking vs Problem Drinking, Diabetes and Drinking Alcohol, First Aid: Poisoning, Alcoholism Myths and Facts, Alcoholism Be Part Solution, Alcoholism: Getting Help, Alcohol Addiction, Signs of Addiction: Social Use, Alcohol Withdrawal: What to Expect, ED Alcohol Withdrawal Seizure, ED Alcohol Withdrawal, ED Alcohol Intoxication Admission Data Admit Date/Time: 08/28/24 01:03 Attending Provider: Dmitriy Aj Admit Provider: Dominik Rider Primary Care Provider: PCP,NO Other Providers: Dominik Rider Other Interventions: Discharge Summary Assessment (RN) Last Done: 08/29/24 17:27 Supervising Physician Co-Signing Physician Notes I personally examined the patient and verified all mora points of history and exam, discussed case, and agree with decision making with Dr Salcedo feeling way better overall would really like to go home to make it to scientologist tomorrow, feels like withdrawal sx improving and notes this episode of withdrawal fortunately was far more mild than prior discussed EtOH - appears to drink due to depression and possibly PTSD vitals noted nad heent nc at mmm breathing unlabored no accessory muscles EtOH abuse/withdrawal - currently doing well overall - sx appear to be improving. he would like to go home - given sx appear to have already peaked and are improving - quite reasonable. will finish treatment w valium x 3 more days. return if any worsening. PCP f/u. depression/possible PTSD - outpt care/resources/f/u Resident Activity Tracking Resident Involvement: Resident Care Provided Care Provided: Adult Hospital Medicine
[2024-08-29 13:43] VITALS: BP 126/74
[2024-08-29 17:27] VITALS: PULSE 99
--- NOTE | 2024-08-29 17:50 | Billing Data ---
Date of Service August 29, 2024 Coding Level of Care Code 41274 IN/OBS DISCH 30 MIN/LESS
[2024-08-30] MEDS ORDERED: GABAPENTIN 600 MG TAB PO SCH
[2024-08-31] MEDS ORDERED: GABAPENTIN 600 MG TAB PO SCH (12:00)
== END 2024-08-29 18:20 | disposition home or self-care (01) | DRG 897 ==
LOC: ED 22:29 → EDINP 08-28 01:03 → SUATTDRO 08-28 01:03 → 2S 08-28 01:42
DX: F10.221 Alcohol dependence with intoxication delirium; F43.10 Post-traumatic stress disorder, unspecified; R11.10 Vomiting, unspecified; Y90.8 Blood alcohol level of 240 mg/100 ml or more; F17.210 Nicotine dependence, cigarettes, uncomplicated; R26.9 Unspecified abnormalities of gait and mobility; F32.A Depression, unspecified; F41.9 Anxiety disorder, unspecified; F10.239 Alcohol dependence with withdrawal, unspecified